=== PATIENT | male | born 1990 | race African-American/Black ===

== ENCOUNTER 2017-05-01 11:59 | Emergency (ER) | payer SELFPAY ==
[~2017-05-01] VITALS: Ht 182.9 cm; Wt 81.6 kg
[~2017-05-01 11:59] MED LIST: IBUPROFEN600 MG ORAL; KEFLEX500 MG ORAL; NORCO 5-325 TA1 EACH ORAL
[2017-05-01] MEDS ORDERED: Bacitracin Oint UD TOPIC ONE (12:45)
[2017-05-01] MEDS ORDERED: TdaP Vaccine 0.5ml Syr IM ONE (12:45)
[2017-05-01 13:17] VITALS: BP 132/71
[2017-05-01] MEDS ORDERED: BACITRACIN15 GM TOPIC (13:20)
[2017-05-01] MEDS ORDERED: CEPHALEXIN500 MG ORAL (13:20)
[2017-05-01] MEDS ORDERED: IBUPROFEN600 MG ORAL (13:20)
[2017-05-01 13:32] VITALS: BP 132/71
--- NOTE | 2017-05-01 15:23 | Emergency Room Report ---
History of Present Illness General Chief Complaint: Laceration Source: Patient Present Illness HPI The patient is a 26-year-old male presenting for laceration of the right wrist which occurred yesterday. He states that he was using a knife to cut food which slipped. He states that he cleaned the wound out with soap and water. He denies any pain at this time he denies any numbness or tingling. Denies previous injury to this area. Last tetanus shot unknown. He denies any other symptoms such as N, V, F, chills, rash Allergies: Coded Allergies: No Known Allergies (Unverified , 04/23/14) Patient History Past Medical History: see triage record Pertinent Family History: none Reviewed Nursing Documentation: PMH: Agreed, PSxH: Agreed Nursing Documentation-PMH Past Medical History: No Stated History Hx Asthma: Yes Review of Systems All Other Systems: negative except mentioned in HPI Physical Exam Vital Signs Date Time Temp Pulse Resp B/P Pulse Ox O2 Delivery O2 Flow Rate FiO2 05/01/17 12:18 98.1 85 14 122/80 98 Room Air Sp02 EP Interpretation: reviewed, normal General Appearance: no apparent distress, alert, GCS 15, non-toxic Head: normocephalic, atraumatic Eyes: bilateral eye PERRL, bilateral eye normal inspection ENT: hearing grossly normal, normal pharynx, no angioedema, normal voice Musculoskeletal: normal range of motion - R wrist, tender - TTP over R dorsal wrist Neurologic: alert, oriented x3, responsive, motor strength/tone normal, sensory intact, normal gait, speech normal Psychiatric: judgement/insight normal, memory normal, mood/affect normal, no suicidal/homicidal ideation Skin: normal turgor, laceration - 3cm linear laceration of R dorsal wrist. Well approximated and healing. No bleeding. No surrounding erythema. Lymphatic: no adenopathy Medical Decision Making PA Attestation Dr. Shaw is my supervising physician. Patient management was discussed with my supervising physician Diagnostic Impression: Primary Impression: Laceration of wrist, right Qualified Codes: S61.511A - Laceration without foreign body of right wrist, initial encounter ER Course The patient is a 26-year-old male presenting for laceration of the right wrist Ddx considered include but not limited to laceration, wound infection, fracture , tendon/ligament injury, avulsion, nerve damage PE: vitals WNL. NAD 3cm linear laceration of R dorsal wrist. Well approximated and healing. No bleeding. No surrounding erythema. Full AROM Tdap given. As the wound is already well approximated and healing, it is cleaned with NS and betadine and bacitracin applied with dressing. Wound appears older than 2 days. Pt will be placed on keflex and is DC'ed. ER precautions given Chest X-Ray Diagnostic Results Chest X-Ray Ordered: No Last Vital Signs Date Time Temp Pulse Resp B/P Pulse Ox O2 Delivery O2 Flow Rate FiO2 05/01/17 13:32 98.1 81 15 132/71 98 Room Air Status: improved Disposition: HOME, SELF-CARE Condition: Improved Scripts Cephalexin* (KEFLEX*) 500 Mg Capsule 500 MG ORAL EVERY 12 HOURS, #14 CAP 0 Refills Prov: AYAAN HERRERA P.A. 05/01/17 Bacitracin (Bacitracin) 28.4 Gm Oint...g. 1 APPLIC TOPIC THREE TIMES A DAY, #28 GM Prov: AYAAN HERRERA P.A. 05/01/17 Ibuprofen* (MOTRIN*) 600 Mg Tablet 600 MG ORAL Q8H Y for For Pain, #30 TAB 0 Refills Prov: TAMANAYAAN P.A. 05/01/17 Patient Instructions: Nonsutured Laceration Care Additional Instructions: I discussed my findings with the patient. All questions and concerns have been answered. Treatment and medication compliance have been addressed. I advised the patient that they need to follow up with PMD in 3-5 days. Return to ED if pain remains or worsens, numbness or tingling occurs, new rash is noticed, fever is noticed, or if needed for any reason. Patient verbalized understanding of discharge instructions. AYAAN HERRERA May 01, 2017 15:22
== END 2017-05-01 13:32 | disposition home or self-care (01) ==
LOC: EMR 12:39
DX: S61.511A Laceration without foreign body of right wrist, initial encounter (principal); W26.0XXA Contact with knife, initial encounter; Y93.9 Activity, unspecified; Y99.9 Unspecified external cause status
CPT/HCPCS: 90471; 90715; 96372; 99284